=== PATIENT | female | born 1960 | race Caucasian/White ===

== ENCOUNTER 2025-05-15 20:13 | Emergency (ER) | payer BC ==
[2025-05-15] MEDS: Diltiazem 25 MG/5 ML SDV IVPUSH ONE ×2 (20:47→22:29)
[2025-05-15 20:51] LABS: BASOPHILS ABSOLUTE AUTO 0.09 K/uL (0.00-0.10); BASOPHILS PERCENT AUTO 0.8 % (0.1-1.3); EOSINOPHILS ABSOLUTE AUTO 0.25 K/uL (0.00-0.40); EOSINOPHILS PERCENT AUTO 2.4 % (0.0-5.4); IMMATURE GRAN ABSOLUTE AUTO 0.03 K/uL (0.00-0.23); IMMATURE GRAN PERCENT AUTO 0.3 % (0.0-0.7); LYMPHOCYTES ABSOLUTE AUTO 2.89 K/uL (0.8-3.3); LYMPHOCYTES PERCENT AUTO 27.2 % (11.4-47.7); MONOCYTES ABSOLUTE AUTO 1.06 K/uL (0.20-0.90); MONOCYTES PERCENT AUTO 10.0 % (3.3-12.6); NEUTROPHILS ABSOLUTE AUTO 6.29 K/uL (1.0-7.6); NEUTROPHILS PERCENT AUTO 59.3 % (40.0-78.1); PLATELET COUNT,PLT 276 K/uL (130-375); RED BLOOD CELL COUNT 4.91 M/uL (3.77-5.24); WHITE BLOOD CELL COUNT,WBC 10.6 K/uL (3.2-11.0)
[2025-05-15] MEDS: Diltiazem 120 MG Cap.CD PO ONE (21:01)
[2025-05-15 21:15] LABS: A/G RATIO 1.2 (1.2-2.2); ALANINE AMINOTRANSFERASE,ALT 35 U/L (12-78); ASPARTATE AMNIOTRANSFERASE,AST 17 U/L (15-37); BILIRUBIN TOTAL 0.5 mg/dL (0.2-1.0); BLOOD UREA NITROGEN,BUN 14 mg/dL (7-18); CARBON DIOXIDE,CO2 27 mmol/L (21-32); CHLORIDE,CL 104 mmol/L (100-108); CREATININE 0.6 mg/dL (0.6-1.0); ESTIMATED GFR 101 mL/min (>60); GLUCOSE RANDOM 106 mg/dL (74-106); POTASSIUM,K 3.9 mmol/L (3.6-5.2); PROTEIN TOTAL,TP 7.3 g/dL (6.4-8.2); SODIUM,NA 141 mmol/L (140-148)
== END 2025-05-15 23:17 | disposition home or self-care (01) ==
LOC: JP.ED 20:13
DX: I48.91 Unspecified atrial fibrillation (principal); Z79.899 Other long term (current) drug therapy
CPT/HCPCS: 36415; 71045; 80053; 85025; 93005; 96374; 99285; A9270; J1163; J7030